=== PATIENT | male | born 1965 | race Two or more races ===

== ENCOUNTER 2020-03-17 01:24 | Inpatient (IN) | payer OTHER ==
[2020-03-17] VITALS (8 sets, daily range): BP systolic 96–128; BP diastolic 58–88
[~2020-03-17] VITALS: Ht 175.3 cm; Wt 82.6 kg
[2020-03-17] MEDS ORDERED: METFORMIN HCL500 M1 ORAL (01:37)
--- NOTE | 2020-03-17 01:46 | Emergency Room Report ---
History of Present Illness General Chief Complaint: Flu Like Symptoms Source: Patient Present Illness HPI This is a 55-year-old male with a history of diabetes high blood pressure. He presents with chief complaint of body pain and generalized weakness. Symptoms been ongoing for 7 days. He tested positive for Covid a week ago. He has a nonproductive cough. Has generalized body pain. Has subjective fever. Nothing made it better. Nothing made it worse. Symptoms appear to be worse in the last couple days. Been taking vitamin C without any relief. No sick contact. 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 COVID-19 Screening: Positive COVID-19 COVID-19 Testing Source: [facility] Patient History Past Medical History: see triage record, old chart reviewed, DM, HTN Past Surgical History: none Pertinent Family History: none Social History: Denies: smoking Immunizations: other Reviewed Nursing Documentation: PMH: Agreed; PSxH: Agreed Nursing Documentation-PMH Past Medical History: No History, Except For Hx Diabetes: Yes Review of Systems Constitutional: Reports: chills, fever, malaise, weakness Eye: Denies: eye pain, blurred vision ENT: Denies: ear pain, nose congestion, throat swelling Respiratory: Reports: cough, shortness of breath Cardiovascular: Reports: chest pain; Denies: palpitations Gastrointestinal: Denies: abdominal pain, diarrhea, nausea, vomiting Musculoskeletal: Denies: back pain, joint pain Skin: Denies: rash Neurological: Denies: headache, numbness Endocrine: Denies: increased thirst, increased urine Hematologic/Lymphatic: Denies: easy bruising All Other Systems: negative except mentioned in HPI Physical Exam Vital Signs Date Time Temp Pulse Resp B/P (MAP) Pulse Ox O2 Delivery O2 Flow Rate FiO2 03/17/20 01:34 100.6 107 18 128/82 (97) 95 Room Air Vitals with fever Sp02 EP Interpretation: reviewed, normal General Appearance: well appearing, alert, other - Ill-appearing Head: normocephalic, atraumatic Eyes: bilateral eye PERRL, bilateral eye EOMI ENT: hearing grossly normal, normal pharynx Neck: full range of motion, supple, no meningismus Respiratory: chest non-tender, lungs clear, normal breath sounds Cardiovascular #1: regular rate, rhythm, no murmur Gastrointestinal: normal bowel sounds, non tender, no mass, no organomegaly, no bruit, non-distended Musculoskeletal: back normal, normal range of motion, gait/station normal Psychiatric: mood/affect normal Medical Decision Making Diagnostic Impression: Primary Impression: Pneumonia due to COVID-19 virus Additional Impressions: Hyperglycemia due to type 2 diabetes mellitus Qualified Codes: E11.65 - Type 2 diabetes mellitus with hyperglycemia SIRS (systemic inflammatory response syndrome) ER Course This patient presents with generalized weakness and has Covid pneumonia. Is resting oxygenation is normal. Antibiotics given here. Insulin given here. He felt better after breathing treatment. He has higher risk for over deterioration because of his comorbidities. At this moment in time, he does not meet criteria for admission. Will discharge home. EKG Diagnostic Results Troponin ordered: Yes Rate: normal Rhythm: NSR ST Segments: other - RBBB Rhythm Strip Diag. Results EP Interpretation: yes Rate: 90 Rhythm: NSR, no PVC's, no ectopy Chest X-Ray Diagnostic Results Chest X-Ray Diagnostic Results : Chest X-Ray Ordered: Yes # of Views/Limited/Complete: 1 View Indication: Shortness of Breath EP Interpretation: Yes Interpretation: no effusion, no pneumothorax, other - Bilateral interstitial infiltrates Impression: Other - b/l infiltrates Electronically Signed by: Nate Begum MD Last Vital Signs Date Time Temp Pulse Resp B/P (MAP) Pulse Ox O2 Delivery O2 Flow Rate FiO2 03/17/20 01:34 100.6 107 18 128/82 (97) 95 Room Air Status: improved Disposition: HOME, SELF-CARE Condition: Stable Scripts Prednisone* (PREDNISONE*) 20 Mg Tablet 40 MG ORAL DAILY, #8 TAB Prov: Nate Begum MD 03/17/20 Zinc (ZINC) 50 Mg Tablet 100 MG ORAL DAILY, #100 TAB Prov: Nate Begum MD 03/17/20 Cholecalciferol (Vitamin D3) (Vitamin D3*) 25 Mcg Capsule 50 MCG PO DAILY for Supplement, #100 CAP Prov: Nate Begum MD 03/17/20 Azithromycin* (ZITHROMAX*) 250 Mg Tablet 250 MG ORAL DAILY, #4 TAB Prov: Nate Begum MD 03/17/20 Albuterol Sulfate* (Albuterol Sulfate Hfa*) 8.5 Gm Hfa.aer.ad 2 PUFF INH Q4H, #1 INH Prov: Nate Begum MD 03/17/20 Referrals: Brandon Smith MD (PCP) Additional Instructions: Check your sugar regularly. Increase fluid. Follow-up with your doctor in 2 to 3 days for recheck. Return for worsening symptoms especially breathing problems. Nate Begum MD Mar 17, 2020 01:46
[2020-03-17] MEDS ORDERED: Acetaminophen 500mg (ES) tab ORAL ONE (02:00)
[2020-03-17] MEDS ORDERED: Albuterol ud Inhalation HHN ONE (02:00)
[2020-03-17] MEDS ORDERED: dexAMETHasone 10mg/ml Inj IV ONE (02:00)
[2020-03-17 02:16] LABS: BASOPHILS % (AUTO) 0.7 % (0.0-2.0); EOSINOPHILS % (AUTO) 2.8 % (0.0-3.0); HEMATOCRIT 37.9 % (42.0-52.0); HEMOGLOBIN 13.7 G/DL (14.2-18.0); LYMPHOCYTES % (AUTO) 22.5 % (20.0-45.0); MEAN CORPUSCULAR VOLUME 89 FL (80-99); MONOCYTES % (AUTO) 8.1 % (1.0-10.0); NEUTROPHILS % (AUTO) 65.8 % (45.0-75.0); PLATELET COUNT 215 K/UL (150-450); RED BLOOD COUNT 4.25 M/UL (4.70-6.10); RED CELL DISTRIBUTION WIDTH 12.2 % (11.6-14.8); WHITE BLOOD COUNT 5.3 K/UL (4.8-10.8)
[2020-03-17 02:29] LABS: ANION GAP 6 mmol/L (5-15); BLOOD UREA NITROGEN 13 mg/dL (7-18); CALCIUM 8.3 MG/DL (8.5-10.1); CARBON DIOXIDE 26 MMOL/L (21-32); CHLORIDE 98 MMOL/L (98-107); CREATININE 0.9 MG/DL (0.55-1.30); POTASSIUM 3.8 MMOL/L (3.5-5.1); SODIUM 130 MMOL/L (136-145)
[2020-03-17] MEDS ORDERED: cefTRIAXone 1 GM in NS 55 ML IVPB ONE (02:45)
[2020-03-17] MEDS ORDERED: Azithromycin 500 MG in NS 275 ML IV ONE (02:45)
[2020-03-17 02:51] LABS: ALANINE AMINOTRANSFERASE 53 U/L (12-78); ALBUMIN 3.1 G/DL (3.4-5.0); ALBUMIN/GLOBULIN RATIO 0.8 (1.0-2.7); ALKALINE PHOSPHATASE 61 U/L (46-116); ASPARTATE AMINO TRANSFERASE 46 U/L (15-37); BILIRUBIN,TOTAL 0.6 MG/DL (0.2-1.0); CKMB 1.3 NG/ML (0.0-3.6); CREATINE KINASE 211 U/L (26-308); FERRITIN 729 NG/ML (8-388); LACTATE DEHYDROGENASE 258 U/L (81-234)
[2020-03-17] MEDS ORDERED: Insulin Human Regular 100units/ml 3ml IV ONE (03:00)
[2020-03-17] MEDS ORDERED: VITAMIN D325 MC1 PO (03:03)
[2020-03-17] MEDS ORDERED: ZINC50 M1 ORAL (03:03)
[2020-03-17] MEDS ORDERED: ZITHROMAX250 MG ORAL (03:03)
[2020-03-17] MEDS ORDERED: PREDNISONE20 MG ORAL (03:03)
[2020-03-17] MEDS ORDERED: ALBUTEROL SULF8.5 G1 INH (03:03)
[2020-03-17 06:08] LABS: APPEARANCE,URINE CLEAR; BILIRUBIN, URINE NEGATIVE (NEGATIVE); GLUCOSE, URINE (UA) 4+ (NEGATIVE); KETONES,URINE NEGATIVE (NEGATIVE); LEUKOCYTE ESTERASE ,URINE NEGATIVE (NEGATIVE); NITRITE,URINE NEGATIVE (NEGATIVE); PH,URINE 6 (4.5-8.0); PROTEIN,URINE 2+ (NEGATIVE); UROBILINOGEN,URINE NORMAL MG/DL (0.0-1.0)
[2020-03-17 06:11] LABS: COLOR,URINE YELLOW
[2020-03-17] MEDS ORDERED: EMERGEN-C 1,01000 MG PO (10:35)
--- NOTE | 2020-03-17 10:43 | Diagnostic Imaging Report ---
Procedure: XRAY Chest 1v Reason for study: Reason For Exam: SOB Comparison films: None. FINDINGS: A single one view chest is obtained. Vascularity is normal. Hazy peripheral infiltrates noted bilaterally. Consider viral pneumonitis. Cardiac and mediastinal silhouette are within normal limits. CP angles are sharp. The bony thorax appear unremarkable. IMPRESSION: Bilateral peripheral infiltrates. Consider viral pneumonitis.
[2020-03-17] MEDS ORDERED: GABAPENTIN600 MG ORAL (12:11)
[2020-03-17] MEDS ORDERED: LISINOPRIL5 MG ORAL (12:11)
[2020-03-17] MEDS ORDERED: CRESTOR20 MG ORAL (12:11)
[2020-03-17] MEDS ORDERED: GLIMEPIRIDE4 MG ORAL (12:11)
--- NOTE | 2020-03-17 15:45 | History and Physical Report ---
DATE OF ADMISSION: 03/17/2020 HISTORY OF PRESENT ILLNESS: This is a 55-year-old diabetic, hypertensive, who came to the hospital with generalized body aches and pains. He states he was tested positive for COVID about a week ago and gradually has been getting worse with increasing cough. He was also mildly dyspneic on arrival. He was also noted to be hypoxemic and currently he is saturating 96% on 4 L oxygen. He underwent imaging studies overnight, which have shown that he has bilateral peripheral infiltrates suspicious for bilateral pneumonia. PAST HISTORY: Hypertension and diabetes. REVIEW OF SYSTEMS: Denies any headaches, hematemesis, melena, hematochezia, night sweats, or weight loss. CURRENT MEDICATIONS: Metformin. ALLERGIES: None. SURGERIES: None. PHYSICAL EXAMINATION: GENERAL: A 55-year-old male. HEENT: Unremarkable. LUNGS: Clear breath sounds bilaterally. ABDOMEN: Soft. EXTREMITIES: There is no edema. NEUROLOGIC: Nonfocal. LABORATORY DATA: Lab testing shows normal CBC and BMP. Glucose is elevated to 333, ferritin 729, LDH 258. CRP 6.7. Coags, D-dimer of 0.5. Urinalysis negative. IMPRESSION: 1. COVID-19 pneumonia. 2. Hypertension. 3. Diabetes mellitus. DISCUSSION: Admit to the hospital. I will consult ID. Continue home medications. Provide oxygen. Start Decadron. I will follow. Casey Arias M.D. DR: NANCY JOB#: [id number] CC: TALIA
[2020-03-17] MEDS: metFORMIN 500mg tab ORAL SCH (17:56)
--- NOTE | 2020-03-17 22:27 | Infectious Diseases Prog Note ---
Assessment/Plan Assessment/Plan Full consult dictated: A) 1) covid-19 virus infection with pna and hypoxia 2) fevers 3) allergies - nkda P) 1) dexamethasone, ceftriaxone and azithromycin 2) consider remdesivir 3) monitor clinically 4) thank you Subjective Allergies: Coded Allergies: No Known Allergies (Unverified , 03/17/20) Objective Last 24 Hour Vital Signs Date Time Temp Pulse Resp B/P (MAP) Pulse Ox O2 Delivery O2 Flow Rate FiO2 03/17/20 20:00 98.9 83 19 109/64 (79) 95 03/17/20 16:00 98.1 73 18 121/83 (96) 98 03/17/20 12:00 99.9 83 18 123/88 (100) 96 03/17/20 11:01 Nasal Cannula 4.0 03/17/20 10:20 97.1 75 16 124/75 100 Nasal Cannula 4.0 03/17/20 07:34 97.0 75 16 111/82 99 Room Air 03/17/20 06:31 97.1 78 20 104/66 100 Nasal Cannula 4.0 03/17/20 05:45 98.9 109 18 100/67 100 Nasal Cannula 4.0 03/17/20 03:00 99.7 103 18 96/58 98 Room Air 03/17/20 02:30 99.7 03/17/20 02:04 96 18 98 Room Air 21 92 18 97 03/17/20 01:40 107 18 Room Air 03/17/20 01:40 100.6 105 18 128/82 95 Room Air 03/17/20 01:34 100.6 107 18 128/82 (97) 95 Room Air Height (Feet): 5 Height (Inches): 9.00 Weight (Pounds): 182 Microbiology Date/Time Source Procedure Growth Status 03/17/20 08:15 Nasopharynx SARS-CoV-2 RdRp Gene Assay - Final Complete Laboratory Tests Test 03/17/20 01:50 03/17/20 04:32 03/17/20 04:40 White Blood Count 5.3 K/UL (4.8-10.8) Red Blood Count 4.25 M/UL (4.70-6.10) L Hemoglobin 13.7 G/DL (14.2-18.0) L Hematocrit 37.9 % (42.0-52.0) L Mean Corpuscular Volume 89 FL (80-99) Mean Corpuscular Hemoglobin 32.1 PG (27.0-31.0) H Mean Corpuscular Hemoglobin Concent 36.0 G/DL (32.0-36.0) Red Cell Distribution Width 12.2 % (11.6-14.8) Platelet Count 215 K/UL (150-450) Mean Platelet Volume 7.3 FL (6.5-10.1) Neutrophils (%) (Auto) 65.8 % (45.0-75.0) Lymphocytes (%) (Auto) 22.5 % (20.0-45.0) Monocytes (%) (Auto) 8.1 % (1.0-10.0) Eosinophils (%) (Auto) 2.8 % (0.0-3.0) Basophils (%) (Auto) 0.7 % (0.0-2.0) Prothrombin Time 10.7 SEC (9.30-11.50) Prothromb Time International Ratio 1.0 (0.9-1.1) Activated Partial Thromboplast Time 29 SEC (23-33) D-Dimer 0.59 mg/L FEU (0.00-0.49) H Sodium Level 130 MMOL/L (136-145) L Potassium Level 3.8 MMOL/L (3.5-5.1) Chloride Level 98 MMOL/L (98-107) Carbon Dioxide Level 26 MMOL/L (21-32) Anion Gap 6 mmol/L (5-15) Blood Urea Nitrogen 13 mg/dL (7-18) Creatinine 0.9 MG/DL (0.55-1.30) Estimat Glomerular Filtration Rate > 60 mL/min (>60) Glucose Level 333 MG/DL (74-106) H Lactic Acid Level 2.00 mmol/L (0.4-2.0) Calcium Level 8.3 MG/DL (8.5-10.1) L Ferritin 729 NG/ML (8-388) H Total Bilirubin 0.6 MG/DL (0.2-1.0) Aspartate Amino Transf (AST/SGOT) 46 U/L (15-37) H Alanine Aminotransferase (ALT/SGPT) 53 U/L (12-78) Alkaline Phosphatase 61 U/L (46-116) Lactate Dehydrogenase 258 U/L (81-234) H Total Creatine Kinase 211 U/L (26-308) Creatine Kinase MB 1.3 NG/ML (0.0-3.6) Creatine Kinase MB Relative Index 0.6 Troponin I 0.003 ng/mL (0.000-0.056) C-Reactive Protein, Quantitative 6.7 mg/dL (0.00-0.90) H Total Protein 7.2 G/DL (6.4-8.2) Albumin 3.1 G/DL (3.4-5.0) L Globulin 4.1 g/dL Albumin/Globulin Ratio 0.8 (1.0-2.7) L Lipase 271 U/L (73-393) POC Whole Blood Glucose 241 MG/DL (74-106) H Urine Color Yellow Urine Appearance Clear Urine pH 6 (4.5-8.0) Urine Specific [place] 1.015 (1.005-1.035) Urine Protein 2+ (NEGATIVE) H Urine Glucose (UA) 4+ (NEGATIVE) H Urine Ketones Negative (NEGATIVE) Urine Blood Negative (NEGATIVE) Urine Nitrite Negative (NEGATIVE) Urine Bilirubin Negative (NEGATIVE) Urine Urobilinogen Normal MG/DL (0.0-1.0) Urine Leukocyte Esterase Negative (NEGATIVE) Urine RBC 0-2 /HPF (0 - 0) H Urine WBC 0 /HPF (0 - 0) Urine Squamous Epithelial Cells None /LPF (NONE/OCC) Urine Bacteria None /HPF (NONE) Current Medications Medications (Trade) Dose Ordered Sig/Tristin Route PRN Reason Start Time Stop Time Status Last Admin Dose Admin Acetaminophen (Tylenol) 650 mg Q4HR PRN ORAL TEMP>100.5 03/17/20 05:45 Dexamethasone Sodium Phosphate (Decadron 4mg/ml vial) 6 mg DAILY@2200 IVP 03/17/20 22:00 03/25/20 22:01 03/17/20 21:29 Gabapentin (Neurontin) 600 mg DAILY ORAL 03/18/20 09:00 04/17/20 08:59 Glimepiride (AmaryL) 4 mg DAILY ORAL 03/18/20 09:00 04/17/20 08:59 Lisinopril (ZestriL) 5 mg DAILY ORAL 03/18/20 09:00 04/17/20 08:59 Metformin HCl (Glucophage) 1,000 mg TWICE A DAY ORAL 03/17/20 18:00 04/16/20 17:59 03/17/20 17:56 Sodium Chloride 1,000 ml @ 50 mls/hr Q20H IV 03/17/20 14:00 04/16/20 13:59 03/17/20 14:29 Deepak Adrian MD Mar 17, 2020 22:27
[2020-03-17] MEDS: cefTRIAXone 1 GM in D5W 50 ML IVPB SCH (22:59)
[2020-03-18] VITALS: BP 113/64
[2020-03-18] MEDS ORDERED: Azithromycin 500mg Inj ONE (00:21)
[2020-03-18 04:00] VITALS: BP 114/77
[2020-03-18 06:51] LABS: HEMATOCRIT 37.4 % (42.0-52.0); MEAN CORPUSCULAR VOLUME 92 FL (80-99); PLATELET COUNT 244 K/UL (150-450); RED BLOOD COUNT 4.06 M/UL (4.70-6.10); RED CELL DISTRIBUTION WIDTH 11.7 % (11.6-14.8); WHITE BLOOD COUNT 8.8 K/UL (4.8-10.8)
[2020-03-18 07:07] LABS: BLOOD UREA NITROGEN 17 mg/dL (7-18); CALCIUM 8.1 MG/DL (8.5-10.1); CHLORIDE 101 MMOL/L (98-107); CREATININE 0.8 MG/DL (0.55-1.30); POTASSIUM 4.2 MMOL/L (3.5-5.1); SODIUM 135 MMOL/L (136-145)
[2020-03-18 07:13] LABS: CARBON DIOXIDE 23 MMOL/L (21-32)
[2020-03-18 08:00] VITALS: BP 104/68
[2020-03-18] MEDS ORDERED: Azithromycin 250 MG in D5W 275 ML IV SCH ×3 (08:00)
[2020-03-18] MEDS: Lisinopril 2.5mg tab ORAL SCH (09:00)
[2020-03-18] MEDS: Azithromycin 250 MG in D5W 275 ML IV SCH (09:02)
[2020-03-18] MEDS: Glimepiride 4mg tab ORAL SCH (09:03)
[2020-03-18] MEDS: metFORMIN 500mg tab ORAL SCH ×2 (09:03→17:18)
--- NOTE | 2020-03-18 09:07 | Pulmonology Progress Note ---
Subjective ROS Limited/Unobtainable: No Constitutional: Reports: other - weakness; Denies: fever, chills, drenching sweats HEENT: Repors: no symptoms Respiratory: Reports: dry cough; Denies: sputum, hemoptysis, wheezing Cardiovascular: Denies: chest pain, palpitations Gastrointestinal/Abdominal: Reports: no symptoms Genitourinary: Reports: no symptoms Allergies: Coded Allergies: No Known Allergies (Unverified , 03/17/20) Objective Last 24 Hour Vital Signs Date Time Temp Pulse Resp B/P (MAP) Pulse Ox O2 Delivery O2 Flow Rate FiO2 03/18/20 04:00 97.7 76 18 114/77 (89) 98 03/18/20 00:00 98.4 85 19 113/64 (80) 93 03/17/20 21:00 Nasal Cannula 4.0 03/17/20 20:00 98.9 83 19 109/64 (79) 95 03/17/20 16:00 98.1 73 18 121/83 (96) 98 03/17/20 12:00 99.9 83 18 123/88 (100) 96 03/17/20 11:01 Nasal Cannula 4.0 03/17/20 10:20 97.1 75 16 124/75 100 Nasal Cannula 4.0 Intake and Output 03/17/20 03/18/20 19:00 07:00 Intake Total 1500 ml 600 ml Output Total 750 ml Balance 1500 ml -150 ml Intake Oral 700 ml IV Total 200 ml 600 ml Other 600 ml Output Urine Total 750 ml # Voids 1 Objective 03/18/2020 pt laying in bed saturating 98% on 4 lpm NC; dry cough when talking General Appearance: WD/WN, no acute distress HEENT: normocephalic, atraumatic Respiratory: chest wall non-tender, lungs clear, no accessory muscle use Cardiovascular: normal peripheral pulses, normal rate, regular rhythm, no gallop/murmur Abdomen: normal bowel sounds, soft, non tender Extremities: no cyanosis, no clubbing, no edema Skin: no rash Neurologic: alert, oriented x 3 Microbiology Date/Time Source Procedure Growth Status 03/17/20 08:15 Nasopharynx SARS-CoV-2 RdRp Gene Assay - Final Complete 03/17/20 01:55 Blood Blood Culture - Preliminary NO GROWTH AFTER 24 HOURS Resulted 03/17/20 01:40 Blood Blood Culture - Preliminary NO GROWTH AFTER 24 HOURS Resulted Laboratory Tests 03/18/20 05:00: White Blood Count 8.8#, Red Blood Count 4.06L, Hemoglobin 13.0L, Hematocrit 37.4L, Mean Corpuscular Volume 92, Mean Corpuscular Hemoglobin 32.1H, Mean Corpuscular Hemoglobin Concent 34.8, Red Cell Distribution Width 11.7, Platelet Count 244, Mean Platelet Volume 6.3L, Neutrophils (%) (Auto) , Lymphocytes (%) (Auto) , Monocytes (%) (Auto) , Eosinophils (%) (Auto) , Basophils (%) (Auto) , Neutrophils % (Manual) [Pending], Lymphocytes % (Manual) [Pending], Platelet Estimate [Pending], Platelet Morphology [Pending], Sodium Level 135L, Potassium Level 4.2, Chloride Level 101, Carbon Dioxide Level 23, Blood Urea Nitrogen 17, Creatinine 0.8, Estimat Glomerular Filtration Rate > 60, Glucose Level 298H, Calcium Level 8.1L Current Medications Medications (Trade) Dose Ordered Sig/Tristin Route PRN Reason Start Time Stop Time Status Last Admin Dose Admin Azithromycin 250 mg/Dextrose 275 ml @ 275 mls/hr Q24HRS IV 03/18/20 09:00 03/23/20 08:59 Ceftriaxone Sodium 1 gm/ Dextrose 50 ml @ 100 mls/hr Q24H IVPB 03/17/20 22:30 03/24/20 22:29 03/17/20 22:59 Dexamethasone Sodium Phosphate (Decadron 4mg/ml vial) 6 mg DAILY@2200 IVP 03/17/20 22:00 03/25/20 22:01 03/17/20 21:29 Gabapentin (Neurontin) 600 mg DAILY ORAL 03/18/20 09:00 04/17/20 08:59 Glimepiride (AmaryL) 4 mg DAILY ORAL 03/18/20 09:00 04/17/20 08:59 Lisinopril (ZestriL) 5 mg DAILY ORAL 03/18/20 09:00 04/17/20 08:59 Metformin HCl (Glucophage) 1,000 mg TWICE A DAY ORAL 03/17/20 18:00 04/16/20 17:59 03/17/20 17:56 Sodium Chloride 1,000 ml @ 50 mls/hr Q20H IV 03/17/20 14:00 04/16/20 13:59 03/17/20 14:29 Assessment/Plan Assessment/Plan 1. COVID-19 pneumonia. - CXR 03/17/2020 Bilateral peripheral infiltrates. Consider viral pneumonitis - currently saturating 98% on 4 lpm NC - on Decadron - ceftriaxone, azithromycin added per ID 2. Hypertension. - on lisinopril 3. Diabetes mellitus. - on glimepiride, gabapentin, metformin Continue home medications. DVT ppx We will follow carefully The care of this patient was discussed with my supervising physician Time spent for this encounter was approximately 31 minutes The patient was seen and examined at bedside and all new and available data was reviewed in the patients chart. I agree with the above findings, impression, and plan. (Patient was seen earlier today. Signature timestamp does not reflect patient encounter time) Insurance requesting transfer to contracted hospital Patient stable for transfer Alfredito Smith MD Mar 18, 2020 09:07 Casey Arias MD Mar 18, 2020 17:31
[2020-03-18 12:00] VITALS: BP 108/63
--- NOTE | 2020-03-18 13:15 | Consultation ---
DATE OF CONSULTATION: 03/17/2020 INFECTIOUS DISEASES CONSULTATION CONSULTING PHYSICIAN: Deepak Adrian MD. ATTENDING PHYSICIAN: Casey Arias MD. REFERRING PHYSICIAN: Casey Arias MD. REASON FOR CONSULTATION: COVID-19 infection, pneumonia. CHIEF COMPLAINT: The patient's chief complaint into the hospital is hypoxia, COVID-19 infection, pneumonia. HISTORY OF PRESENT ILLNESS: This is a 55-year-old male who comes into [facility] with hypoxia. The patient had COVID testing that was positive. Infectious Disease consultation requested because of COVID infection, hypoxia, and pneumonia. The patient has been started on dexamethasone, ceftriaxone, azithromycin. Because of the hypoxia, I will plan on starting Remdesivir. We will discuss with pharmacy. The patient is on 4 liters O2 for the COVID-19 infection, pneumonia, and also treating possible community-acquired pneumonia with Rocephin and azithromycin. We will continue also dexamethasone, again consider starting on Remdesivir. REVIEW OF SYSTEMS: CONSTITUTIONAL: The patient has generalized fatigue. No focal weakness. He comes in with shortness of breath. He currently does not have fevers. He did have fevers when he came as high as 100.6. He has no chills, night sweats. CARDIAC: No chest pain. GASTROINTESTINAL: No nausea, vomiting, diarrhea. GENITOURINARY: No dysuria or frequency. PULMONARY: Mild shortness of breath. SKIN: No rash. PAST MEDICAL HISTORY: The patient has a past medical history of diabetes and hypertension. MEDICATIONS: Upon reviewing the MAR, he is on following medications: He is on Rocephin, azithromycin, lisinopril, Amaryl, Neurontin, dexamethasone 6 mg daily, ivf, abx, prn meds, metformin. Plan on possible Remdesivir. Outside medications noted and reconciliated. ALLERGIES: No known drug allergies. No antibiotic allergies. SOCIAL HISTORY: Negative for smoking, alcohol, drug abuse. FAMILY HISTORY: Noncontributory. PHYSICAL EXAMINATION: VITAL SIGNS: T-max 100.6. Current temperature when I saw him 98.1. Pulse rate 72, respiratory rate 18, blood pressure 121/83, saturation 98% on 4L. GENERAL: Alert and responsive. He is on 4 liters O2, mild shortness of breath. HEAD AND NECK: Oral exam, no thrush. Eye exam, no icterus. Normocephalic. Neck is supple. No JVD. HEART: Regular. No gallop or murmur. LUNGS: Few bilateral rhonchi and rales. ABDOMEN: Soft. Positive bowel sounds. Nontender. SKIN: No rash. MUSCULOSKELETAL: No effusions. Legs are without cellulitis. PERIPHERAL VASCULAR: No cyanosis. GENITOURINARY: No Hassan. LINE SITES: Without phlebitis. NEUROLOGIC: Intact and nonfocal. Alert and oriented x3. LABORATORY AND DIAGNOSTIC DATA: White count 5.3, hemoglobin 13.7. Creatinine 0.9. LFTs noted, LFTs were fairly unremarkable. AST slightly elevated at 46. C-reactive protein 6.7. UA, 0 white cells. Cultures, blood cultures negative to date. COVID testing was positive. Nasopharyngeal testing was positive. Imaging studies, chest x-ray showed bilateral peripheral infiltrates consistent with viral pneumonitis. ASSESSMENT AND PLAN: 1. The patient with COVID-19 infection with bilateral pneumonia, rule out community-acquired pneumonia. The patient was started on dexamethasone, Rocephin, and azithromycin to treat community-acquired pneumonia, also COVID-19 infection, pneumonia treatment with dexamethasone. Because of the elevated CRP and O2 also consider adding Remdesivir to the regiment for COVID-19 treatment. Continue Rocephin, azithromycin for community-acquired pneumonia and also dexamethasone and likely Remdesivir for COVID treatment. Monitor hypoxia. Check followup labs and chest x-ray. 2. Diabetes. 3. Hypertension. 4. Blood sugar and blood pressure treatment per primary care team. 5. No known drug allergies 6. Social history is negative. 7. Family history is noncontributory. 8. MAR was noted. 9. Case discussed with RN. 10. Continue treatment per primary care team and consultants. Deepak Adrian M.D. DR: Deepika JOB#: [id number] CC: TALIA
--- NOTE | 2020-03-18 14:20 | Infectious Diseases Prog Note ---
Assessment/Plan Assessment/Plan A) 1) covid-19 virus infection with pna and hypoxia 2) fevers 3) allergies - nkda P) 1) dexamethasone, ceftriaxone and azithromycin 2) remdesivir started - d/w with patient benefits and risks and patient agrees, d/w pharmacy 3) monitor clinically 4) thank you Subjective Constitutional: Reports: other - on 4 liters ; Denies: fever HEENT: Reports: congestion Respiratory: Reports: shortness of breath Cardiovascular: Reports: chest pain Gastrointestinal/Abdominal: Reports: nausea Allergies: Coded Allergies: No Known Allergies (Unverified , 03/17/20) Objective Last 24 Hour Vital Signs Date Time Temp Pulse Resp B/P (MAP) Pulse Ox O2 Delivery O2 Flow Rate FiO2 03/18/20 12:00 97.9 61 20 108/63 (78) 94 03/18/20 09:00 Nasal Cannula 4.0 03/18/20 08:00 98.1 77 20 104/68 (80) 95 03/18/20 04:00 97.7 76 18 114/77 (89) 98 03/18/20 00:00 98.4 85 19 113/64 (80) 93 03/17/20 21:00 Nasal Cannula 4.0 03/17/20 20:00 98.9 83 19 109/64 (79) 95 03/17/20 16:00 98.1 73 18 121/83 (96) 98 Height (Feet): 5 Height (Inches): 9.00 Weight (Pounds): 182 General Appearance: no acute distress HEENT: normocephalic, atraumatic, mucous membranes moist Respiratory/Chest: crackles/rales, rhonchi - bilaterally Cardiovascular: normal rate, regular rhythm Abdomen: normal bowel sounds, soft, non tender Microbiology Date/Time Source Procedure Growth Status 03/17/20 08:15 Nasopharynx SARS-CoV-2 RdRp Gene Assay - Final Complete 03/17/20 01:55 Blood Blood Culture - Preliminary NO GROWTH AFTER 24 HOURS Resulted 03/17/20 01:40 Blood Blood Culture - Preliminary NO GROWTH AFTER 24 HOURS Resulted Laboratory Tests Test 03/18/20 05:00 White Blood Count 8.8 K/UL (4.8-10.8) # Red Blood Count 4.06 M/UL (4.70-6.10) L Hemoglobin 13.0 G/DL (14.2-18.0) L Hematocrit 37.4 % (42.0-52.0) L Mean Corpuscular Volume 92 FL (80-99) Mean Corpuscular Hemoglobin 32.1 PG (27.0-31.0) H Mean Corpuscular Hemoglobin Concent 34.8 G/DL (32.0-36.0) Red Cell Distribution Width 11.7 % (11.6-14.8) Platelet Count 244 K/UL (150-450) Mean Platelet Volume 6.3 FL (6.5-10.1) L Neutrophils (%) (Auto) % (45.0-75.0) Lymphocytes (%) (Auto) % (20.0-45.0) Monocytes (%) (Auto) % (1.0-10.0) Eosinophils (%) (Auto) % (0.0-3.0) Basophils (%) (Auto) % (0.0-2.0) Differential Total Cells Counted 100 Neutrophils % (Manual) 85 % (45-75) H Lymphocytes % (Manual) 10 % (20-45) L Monocytes % (Manual) 5 % (1-10) Eosinophils % (Manual) 0 % (0-3) Basophils % (Manual) 0 % (0-2) Band Neutrophils 0 % (0-8) Platelet Estimate Adequate Platelet Morphology Normal Red Blood Cell Morphology Normal Sodium Level 135 MMOL/L (136-145) L Potassium Level 4.2 MMOL/L (3.5-5.1) Chloride Level 101 MMOL/L (98-107) Carbon Dioxide Level 23 MMOL/L (21-32) Blood Urea Nitrogen 17 mg/dL (7-18) Creatinine 0.8 MG/DL (0.55-1.30) Estimat Glomerular Filtration Rate > 60 mL/min (>60) Glucose Level 298 MG/DL (74-106) H Calcium Level 8.1 MG/DL (8.5-10.1) L Current Medications Medications (Trade) Dose Ordered Sig/Tristin Route PRN Reason Start Time Stop Time Status Last Admin Dose Admin Azithromycin 250 mg/Dextrose 275 ml @ 275 mls/hr Q24HRS IV 03/18/20 09:00 03/23/20 08:59 03/18/20 09:02 Ceftriaxone Sodium 1 gm/ Dextrose 50 ml @ 100 mls/hr Q24H IVPB 03/17/20 22:30 03/24/20 22:29 03/17/20 22:59 Dexamethasone Sodium Phosphate (Decadron 4mg/ml vial) 6 mg DAILY@2200 IVP 03/17/20 22:00 03/25/20 22:01 03/17/20 21:29 Gabapentin (Neurontin) 600 mg DAILY ORAL 03/18/20 09:00 04/17/20 08:59 03/18/20 09:03 Glimepiride (AmaryL) 4 mg DAILY ORAL 03/18/20 09:00 04/17/20 08:59 03/18/20 09:03 Lisinopril (ZestriL) 5 mg DAILY ORAL 03/18/20 09:00 04/17/20 08:59 Metformin HCl (Glucophage) 1,000 mg TWICE A DAY ORAL 03/17/20 18:00 04/16/20 17:59 03/18/20 09:03 Remdesivir 100 mg/ Sodium Chloride 250 ml @ 250 mls/hr Q24H IV 03/19/20 16:00 03/22/20 16:59 Remdesivir 200 mg/ Sodium Chloride 250 ml @ 125 mls/hr ONCE IV 03/18/20 16:00 03/18/20 17:59 Sodium Chloride 1,000 ml @ 50 mls/hr Q20H IV 03/17/20 14:00 04/16/20 13:59 03/18/20 09:03 Deepak Adrian MD Mar 18, 2020 14:20
[2020-03-18 16:00] VITALS: BP 119/61
[2020-03-18] MEDS ORDERED: Loading Dose:Remdesivir 200mg/NS 210ml IV SCH ×2 (16:00)
[2020-03-18 20:00] VITALS: BP 118/70
[2020-03-18] MEDS: cefTRIAXone 1 GM in D5W 50 ML IVPB SCH (21:52)
[2020-03-19] VITALS: BP 109/64
[2020-03-19 04:00] VITALS: BP 106/62
[2020-03-19 05:50] LABS: HEMATOCRIT 39.4 % (42.0-52.0); HEMOGLOBIN 13.6 G/DL (14.2-18.0); MEAN CORPUSCULAR VOLUME 93 FL (80-99); PLATELET COUNT 305 K/UL (150-450); RED BLOOD COUNT 4.22 M/UL (4.70-6.10); RED CELL DISTRIBUTION WIDTH 11.7 % (11.6-14.8); WHITE BLOOD COUNT 7.5 K/UL (4.8-10.8)
[2020-03-19 06:25] LABS: ALANINE AMINOTRANSFERASE 41 U/L (12-78); ALBUMIN/GLOBULIN RATIO 0.7 (1.0-2.7); ALKALINE PHOSPHATASE 48 U/L (46-116); ANION GAP 10 mmol/L (5-15); ASPARTATE AMINO TRANSFERASE 25 U/L (15-37); BILIRUBIN,DIRECT 0.1 MG/DL (0.0-0.3); BILIRUBIN,TOTAL 0.5 MG/DL (0.2-1.0); BLOOD UREA NITROGEN 16 mg/dL (7-18); CALCIUM 8.6 MG/DL (8.5-10.1); CARBON DIOXIDE 25 MMOL/L (21-32); CHLORIDE 101 MMOL/L (98-107); CREATININE 0.9 MG/DL (0.55-1.30); POTASSIUM 4.2 MMOL/L (3.5-5.1); SODIUM 136 MMOL/L (136-145)
[2020-03-19 08:00] VITALS: BP 112/81
[2020-03-19] MEDS: Glimepiride 4mg tab ORAL SCH (09:18)
[2020-03-19] MEDS: Azithromycin 250 MG in D5W 275 ML IV SCH (09:18)
[2020-03-19] MEDS: metFORMIN 500mg tab ORAL SCH ×2 (09:18→17:28)
[2020-03-19] MEDS: Lisinopril 2.5mg tab ORAL SCH (09:18)
[2020-03-19 12:00] VITALS: BP 119/83
--- NOTE | 2020-03-19 12:27 | Pulmonology Progress Note ---
Subjective ROS Limited/Unobtainable: No Interval Events: None new Constitutional: Reports: other - weakness; Denies: fever, chills, drenching sweats HEENT: Repors: no symptoms Respiratory: Reports: dry cough - Improving; Denies: sputum, hemoptysis, wheezing Cardiovascular: Denies: chest pain, palpitations Gastrointestinal/Abdominal: Reports: no symptoms Genitourinary: Reports: no symptoms Allergies: Coded Allergies: No Known Allergies (Unverified , 03/17/20) Objective Last 24 Hour Vital Signs Date Time Temp Pulse Resp B/P (MAP) Pulse Ox O2 Delivery O2 Flow Rate FiO2 03/19/20 09:18 112/81 03/19/20 09:00 Nasal Cannula 4.0 03/19/20 08:00 97.5 84 19 112/81 (91) 96 03/19/20 04:00 98.0 84 19 106/62 (77) 96 03/19/20 00:00 97.5 75 20 109/64 (79) 96 03/18/20 21:39 99.5 03/18/20 21:00 Nasal Cannula 4.0 03/18/20 20:00 100.9 59 20 118/70 (86) 96 03/18/20 16:00 97.7 68 20 119/61 (80) 94 Intake and Output 03/18/20 03/19/20 19:00 07:00 Intake Total 480 ml 350 ml Output Total 1300 ml 800 ml Balance -820 ml -450 ml Intake Oral 480 ml 350 ml Output Urine Total 1300 ml 800 ml Objective 03/19/2020 saturating well on 4 lpm NC; minimal cough 03/18/2020 pt laying in bed saturating 98% on 4 lpm NC; dry cough when talking General Appearance: WD/WN, no acute distress HEENT: normocephalic, atraumatic Respiratory: chest wall non-tender, lungs clear, no accessory muscle use Cardiovascular: normal peripheral pulses, normal rate, regular rhythm, no gallop/murmur Abdomen: normal bowel sounds, soft, non tender Extremities: no cyanosis, no clubbing, no edema Skin: no rash Neurologic: alert, oriented x 3 Microbiology Date/Time Source Procedure Growth Status 03/17/20 08:15 Nasopharynx SARS-CoV-2 RdRp Gene Assay - Final Complete 12/8/20 01:55 Blood Blood Culture - Preliminary NO GROWTH AFTER 24 HOURS Resulted 03/17/20 01:40 Blood Blood Culture - Preliminary NO GROWTH AFTER 24 HOURS Resulted Laboratory Tests 03/19/20 04:00: White Blood Count 7.5, Red Blood Count 4.22L, Hemoglobin 13.6L, Hematocrit 39.4L , Mean Corpuscular Volume 93, Mean Corpuscular Hemoglobin 32.2H, Mean Corpuscular Hemoglobin Concent 34.5, Red Cell Distribution Width 11.7, Platelet Count 305, Mean Platelet Volume 6.5, Neutrophils (%) (Auto) , Lymphocytes (%) (Auto) , Monocytes (%) (Auto) , Eosinophils (%) (Auto) , Basophils (%) (Auto) , Differential Total Cells Counted 100, Neutrophils % (Manual) 80H, Lymphocytes % (Manual) 16L, Monocytes % (Manual) 4, Eosinophils % (Manual) 0, Basophils % (Manual) 0, Band Neutrophils 0, Platelet Estimate Adequate, Platelet Morphology Normal, Red Blood Cell Morphology Normal, Sodium Level 136, Potassium Level 4.2, Chloride Level 101, Carbon Dioxide Level 25, Anion Gap 10, Blood Urea Nitrogen 16, Creatinine 0.9, Estimat Glomerular Filtration Rate > 60, Glucose Level 344H, Calcium Level 8.6, Total Bilirubin 0.5, Direct Bilirubin 0.1, Aspartate Amino Transf (AST/SGOT) 25, Alanine Aminotransferase (ALT/SGPT) 41, Alkaline Phosphatase 48, C-Reactive Protein, Quantitative 6.7H, Total Protein 7.4, Albumin 3.0L, Globulin 4.4, Albumin/Globulin Ratio 0.7L Current Medications Medications (Trade) Dose Ordered Sig/Tristin Route PRN Reason Start Time Stop Time Status Last Admin Dose Admin Acetaminophen (Tylenol) 650 mg Q4H PRN ORAL Temp >100.5 03/18/20 20:15 04/17/20 20:14 03/18/20 21:09 Acetaminophen (Tylenol) 650 mg Q4H PRN ORAL Mild Pain (Pain Scale 1-3) 03/18/20 20:15 04/17/20 20:14 Azithromycin 250 mg/Dextrose 275 ml @ 275 mls/hr Q24HRS IV 03/18/20 09:00 03/23/20 08:59 03/19/20 09:18 Ceftriaxone Sodium 1 gm/ Dextrose 50 ml @ 100 mls/hr Q24H IVPB 03/17/20 22:30 03/24/20 22:29 03/18/20 21:52 Dexamethasone Sodium Phosphate (Decadron 4mg/ml vial) 6 mg DAILY@2200 IVP 03/17/20 22:00 03/25/20 22:01 03/18/20 21:09 Gabapentin (Neurontin) 600 mg DAILY ORAL 03/18/20 09:00 04/17/20 08:59 03/19/20 09:18 Glimepiride (AmaryL) 4 mg DAILY ORAL 03/18/20 09:00 04/17/20 08:59 03/19/20 09:18 Lisinopril (ZestriL) 5 mg DAILY ORAL 03/18/20 09:00 04/17/20 08:59 03/19/20 09:18 Metformin HCl (Glucophage) 1,000 mg TWICE A DAY ORAL 03/17/20 18:00 04/16/20 17:59 03/19/20 09:18 Remdesivir 100 mg/ Sodium Chloride 250 ml @ 250 mls/hr Q24H IV 03/19/20 16:00 03/22/20 16:59 Sodium Chloride 1,000 ml @ 50 mls/hr Q20H IV 03/17/20 14:00 04/16/20 13:59 03/19/20 05:21 Assessment/Plan Assessment/Plan 1. COVID-19 pneumonia. - CXR 03/17/2020 Bilateral peripheral infiltrates. Consider viral pneumonitis - currently saturating 98% on 4 lpm NC - on Decadron per ID - on ceftriaxone, azithromycin per ID 2. Hypertension. - on lisinopril 3. Diabetes mellitus. - on glimepiride, gabapentin, metformin Continue home medications. DVT ppx 03/18/2020 patient denied transfer to another hospital in [facility] in [facility], which is under his insurance network, but declined saying, "it is too far and I will stay here". We will follow carefully The care of this patient was discussed with my supervising physician Time spent for this encounter was approximately 31 minutes The patient was seen and examined at bedside and all new and available data was reviewed in the patients chart. I agree with the above findings, impression, and plan. F/U with ~~ Recommendation (Patient was seen earlier today. Signature timestamp does not reflect patient encounter time) Alfredito Smith MD Mar 19, 2020 12:27 Casey Arias MD Mar 19, 2020 18:02
[2020-03-19] MEDS: Maintenance Dose:Remdesivir 100mg/NS 230ml x 4 Doses IV SCH ×2 (15:26)
[2020-03-19 16:00] VITALS: BP 118/70
--- NOTE | 2020-03-19 16:26 | Diagnostic Imaging Report ---
Indication: Reason For Exam: Shortness of breath Technique: Single AP view of the chest. Comparison: Chest radiograph dated 03/17/2020 Findings: The cardiomediastinal silhouette is unchanged in appearance. Redemonstration of diffuse interstitial opacities and bilateral foraminal peripheral patchy airspace opacities. No pneumothorax. No increasing pleural effusion. IMPRESSION: No significant change when compared to most recent examination.
[2020-03-19] MEDS ORDERED: VITAMIN C1000 M2 PO (18:32)
[2020-03-19] MEDS ORDERED: CRESTOR10 M2 ORAL (18:32)
[2020-03-19] MEDS ORDERED: AUGMENTIN 500-1 EACH ORAL (18:32)
[2020-03-19] MEDS ORDERED: OMEPRAZOLE20 M2 ORAL (18:32)
[2020-03-19] MEDS ORDERED: METFORMIN HCL1000 M1 ORAL (18:32)
[2020-03-19 20:00] VITALS: BP 122/77
[2020-03-19] MEDS: cefTRIAXone 1 GM in D5W 50 ML IVPB SCH (21:30)
--- NOTE | 2020-03-19 22:41 | Infectious Diseases Prog Note ---
Assessment/Plan Assessment/Plan ASSESSMENT AND PLAN: 1. covid-19, pna, ? cap, hypoxia, fevers - dexamethasone - day # 3 - remdesivir - day # 2 - ceftriaxone/azithromycin - day # 3 - monitor labs, chest x-ray and hypoxia 2. Diabetes. 3. Hypertension. 4. Blood sugar and blood pressure treatment per primary care team. 5. No known drug allergies 6. Social history is negative. 7. Family history is noncontributory. 8. MAR was noted. 9. Case discussed with RN. 10. Continue treatment per primary care team and consultants. Subjective Constitutional: Reports: fatigue; Denies: fever HEENT: Reports: congestion - less Respiratory: Reports: shortness of breath - less Cardiovascular: Denies: chest pain Gastrointestinal/Abdominal: Denies: nausea, vomiting, diarrhea Genitourinary: Denies: dysuria, hematuria Neurologic: Denies: headache, numbness Psychiatric: Denies: depression Skin: Denies: rash Hematologic: Denies: bleeding Musculoskeletal: Denies: pain Allergies: Coded Allergies: No Known Allergies (Unverified , 03/17/20) Objective Last 24 Hour Vital Signs Date Time Temp Pulse Resp B/P (MAP) Pulse Ox O2 Delivery O2 Flow Rate FiO2 03/19/20 20:00 98.4 53 20 122/77 (92) 94 03/19/20 16:00 98.3 58 19 118/70 (86) 96 03/19/20 12:00 98.0 84 19 119/83 (95) 96 03/19/20 09:18 112/81 03/19/20 09:00 Nasal Cannula 4.0 03/19/20 08:00 97.5 84 19 112/81 (91) 96 03/19/20 04:00 98.0 84 19 106/62 (77) 96 03/19/20 00:00 97.5 75 20 109/64 (79) 96 Height (Feet): 5 Height (Inches): 9.00 Weight (Pounds): 182 General Appearance: no acute distress HEENT: normocephalic, atraumatic, anicteric, mucous membranes moist Respiratory/Chest: no accessory muscle use, crackles/rales, rhonchi - bilaterally Cardiovascular: normal rate, regular rhythm, no gallop/murmur Abdomen: normal bowel sounds, soft, non tender, no organomegaly, non distended Genitourinary: other - no vera Extremities: no cyanosis Skin: no rash 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 Comparison: Chest radiograph dated 03/17/2020 Findings: The cardiomediastinal silhouette is unchanged in appearance. Redemonstration of diffuse interstitial opacities and bilateral foraminal peripheral patchy airspace opacities. No pneumothorax. No increasing pleural effusion. IMPRESSION: No significant change when compared to most recent examination. Microbiology Date/Time Source Procedure Growth Status 03/17/20 08:15 Nasopharynx SARS-CoV-2 RdRp Gene Assay - Final Complete 03/17/20 01:55 Blood Blood Culture - Preliminary NO GROWTH AFTER 24 HOURS Resulted 03/17/20 01:40 Blood Blood Culture - Preliminary NO GROWTH AFTER 24 HOURS Resulted Laboratory Tests Test 03/19/20 04:00 White Blood Count 7.5 K/UL (4.8-10.8) Red Blood Count 4.22 M/UL (4.70-6.10) L Hemoglobin 13.6 G/DL (14.2-18.0) L Hematocrit 39.4 % (42.0-52.0) L Mean Corpuscular Volume 93 FL (80-99) Mean Corpuscular Hemoglobin 32.2 PG (27.0-31.0) H Mean Corpuscular Hemoglobin Concent 34.5 G/DL (32.0-36.0) Red Cell Distribution Width 11.7 % (11.6-14.8) Platelet Count 305 K/UL (150-450) Mean Platelet Volume 6.5 FL (6.5-10.1) Neutrophils (%) (Auto) % (45.0-75.0) Lymphocytes (%) (Auto) % (20.0-45.0) Monocytes (%) (Auto) % (1.0-10.0) Eosinophils (%) (Auto) % (0.0-3.0) Basophils (%) (Auto) % (0.0-2.0) Differential Total Cells Counted 100 Neutrophils % (Manual) 80 % (45-75) H Lymphocytes % (Manual) 16 % (20-45) L Monocytes % (Manual) 4 % (1-10) Eosinophils % (Manual) 0 % (0-3) Basophils % (Manual) 0 % (0-2) Band Neutrophils 0 % (0-8) Platelet Estimate Adequate Platelet Morphology Normal Red Blood Cell Morphology Normal Sodium Level 136 MMOL/L (136-145) Potassium Level 4.2 MMOL/L (3.5-5.1) Chloride Level 101 MMOL/L (98-107) Carbon Dioxide Level 25 MMOL/L (21-32) Anion Gap 10 mmol/L (5-15) Blood Urea Nitrogen 16 mg/dL (7-18) Creatinine 0.9 MG/DL (0.55-1.30) Estimat Glomerular Filtration Rate > 60 mL/min (>60) Glucose Level 344 MG/DL (74-106) H Calcium Level 8.6 MG/DL (8.5-10.1) Total Bilirubin 0.5 MG/DL (0.2-1.0) Direct Bilirubin 0.1 MG/DL (0.0-0.3) Aspartate Amino Transf (AST/SGOT) 25 U/L (15-37) Alanine Aminotransferase (ALT/SGPT) 41 U/L (12-78) Alkaline Phosphatase 48 U/L (46-116) C-Reactive Protein, Quantitative 6.7 mg/dL (0.00-0.90) H Total Protein 7.4 G/DL (6.4-8.2) Albumin 3.0 G/DL (3.4-5.0) L Globulin 4.4 g/dL Albumin/Globulin Ratio 0.7 (1.0-2.7) L Current Medications Medications (Trade) Dose Ordered Sig/Tristin Route PRN Reason Start Time Stop Time Status Last Admin Dose Admin Acetaminophen (Tylenol) 650 mg Q4H PRN ORAL Temp >100.5 03/18/20 20:15 04/17/20 20:14 03/18/20 21:09 Acetaminophen (Tylenol) 650 mg Q4H PRN ORAL Mild Pain (Pain Scale 1-3) 03/18/20 20:15 04/17/20 20:14 Azithromycin 250 mg/Dextrose 275 ml @ 275 mls/hr Q24HRS IV 12/9/20 09:00 03/23/20 08:59 03/19/20 09:18 Ceftriaxone Sodium 1 gm/ Dextrose 50 ml @ 100 mls/hr Q24H IVPB 03/17/20 22:30 03/24/20 22:29 03/19/20 21:30 Dexamethasone Sodium Phosphate (Decadron 4mg/ml vial) 6 mg DAILY@2200 IVP 03/17/20 22:00 03/25/20 22:01 03/19/20 21:30 Gabapentin (Neurontin) 600 mg DAILY ORAL 03/20/20 09:00 04/17/20 08:59 Glimepiride (AmaryL) 4 mg DAILY ORAL 03/18/20 09:00 04/17/20 08:59 03/19/20 09:18 Lisinopril (ZestriL) 5 mg DAILY ORAL 03/18/20 09:00 04/17/20 08:59 03/19/20 09:18 Metformin HCl (Glucophage) 1,000 mg TWICE A DAY ORAL 03/17/20 18:00 04/16/20 17:59 03/19/20 17:28 Remdesivir 100 mg/ Sodium Chloride 250 ml @ 250 mls/hr Q24H IV 03/19/20 16:00 03/22/20 16:59 03/19/20 15:26 Sodium Chloride 1,000 ml @ 50 mls/hr Q20H IV 03/17/20 14:00 04/16/20 13:59 03/19/20 05:21 Deepak Adrian MD Mar 19, 2020 22:41
[2020-03-20] VITALS: BP 126/69
[2020-03-20 04:00] VITALS: BP 117/79
[2020-03-20 06:19] LABS: HEMATOCRIT 36.8 % (42.0-52.0); MEAN CORPUSCULAR VOLUME 94 FL (80-99); PLATELET COUNT 322 K/UL (150-450); RED BLOOD COUNT 3.91 M/UL (4.70-6.10); WHITE BLOOD COUNT 6.7 K/UL (4.8-10.8)
[2020-03-20 06:53] LABS: ALANINE AMINOTRANSFERASE 30 U/L (12-78); ALBUMIN 2.9 G/DL (3.4-5.0); ALBUMIN/GLOBULIN RATIO 0.7 (1.0-2.7); ALKALINE PHOSPHATASE 52 U/L (46-116); ANION GAP 9 mmol/L (5-15); ASPARTATE AMINO TRANSFERASE 30 U/L (15-37); BILIRUBIN,DIRECT 0.2 MG/DL (0.0-0.3); BILIRUBIN,TOTAL 0.5 MG/DL (0.2-1.0); BLOOD UREA NITROGEN 19 mg/dL (7-18); CALCIUM 8.6 MG/DL (8.5-10.1); CARBON DIOXIDE 24 MMOL/L (21-32); CHLORIDE 99 MMOL/L (98-107); CREATININE 0.9 MG/DL (0.55-1.30); POTASSIUM 4.5 MMOL/L (3.5-5.1); SODIUM 132 MMOL/L (136-145)
[2020-03-20 08:00] VITALS: BP 123/93
[2020-03-20] MEDS: Glimepiride 4mg tab ORAL SCH (09:00)
[2020-03-20] MEDS: metFORMIN 500mg tab ORAL SCH ×2 (09:31→18:00)
[2020-03-20] MEDS: Azithromycin 250 MG in D5W 275 ML IV SCH (09:31)
[2020-03-20] MEDS: Lisinopril 2.5mg tab ORAL SCH (09:32)
--- NOTE | 2020-03-20 09:47 | Pulmonology Progress Note ---
Subjective ROS Limited/Unobtainable: No Interval Events: None new Constitutional: Reports: fatigue; Denies: fever HEENT: Repors: no symptoms Respiratory: Reports: dry cough - Improving; Denies: sputum, hemoptysis, wheezi ng Cardiovascular: Denies: chest pain, palpitations Gastrointestinal/Abdominal: Denies: nausea, vomiting, diarrhea Genitourinary: Reports: no symptoms Psychiatric: Denies: depression Skin: Denies: rash Musculoskeletal: Denies: pain Allergies: Coded Allergies: No Known Allergies (Unverified , 03/17/20) Objective Last 24 Hour Vital Signs Date Time Temp Pulse Resp B/P (MAP) Pulse Ox O2 Delivery O2 Flow Rate FiO2 03/20/20 09:32 121/93 03/20/20 04:00 96.8 73 19 117/79 (92) 95 03/20/20 00:00 98.4 56 20 126/69 (88) 94 03/19/20 21:00 Nasal Cannula 4.0 03/19/20 20:00 98.4 53 20 122/77 (92) 94 03/19/20 16:00 98.3 58 19 118/70 (86) 96 03/19/20 12:00 98.0 84 19 119/83 (95) 96 Intake and Output 03/19/20 03/20/20 19:00 07:00 Intake Total 1430 ml 350 ml Output Total 800 ml 760 ml Balance 630 ml -410 ml Intake Oral 480 ml 350 ml Other 950 ml Output Urine Total 800 ml 760 ml Objective 03/20/2020 saturating well on 4 lpm NC; pt subjectively feels better 03/19/2020 saturating well on 4 lpm NC; minimal cough 03/18/2020 pt laying in bed saturating 98% on 4 lpm NC; dry cough when talking General Appearance: WD/WN, no acute distress HEENT: normocephalic, atraumatic Respiratory: chest wall non-tender, lungs clear, no accessory muscle use Cardiovascular: normal peripheral pulses, normal rate, regular rhythm, no gallop/murmur Abdomen: normal bowel sounds, soft, non tender Extremities: no cyanosis, no clubbing, no edema Skin: no rash Neurologic: alert, oriented x 3 Laboratory Tests 03/20/20 04:00: White Blood Count 6.7, Red Blood Count 3.91L, Hemoglobin 13.0L, Hematocrit 36.8L , Mean Corpuscular Volume 94, Mean Corpuscular Hemoglobin 33.4H, Mean Corpuscular Hemoglobin Concent 35.4, Red Cell Distribution Width 12.0, Platelet Count 322, Mean Platelet Volume 5.9L, Neutrophils (%) (Auto) , Lymphocytes (%) (Auto) , Monocytes (%) (Auto) , Eosinophils (%) (Auto) , Basophils (%) (Auto) 03/20/20 04:15: Sodium Level 132L, Potassium Level 4.5, Chloride Level 99, Carbon Dioxide Level 24, Anion Gap 9, Blood Urea Nitrogen 19H, Creatinine 0.9, Estimat Glomerular Filtration Rate > 60, Glucose Level 352H, Calcium Level 8.6, Total Bilirubin 0.5, Direct Bilirubin 0.2, Aspartate Amino Transf (AST/SGOT) 30, Alanine Aminotransferase (ALT/SGPT) 30, Alkaline Phosphatase 52, Total Protein 7.3, Albumin 2.9L, Globulin 4.4, Albumin/Globulin Ratio 0.7L Current Medications Medications (Trade) Dose Ordered Sig/Tristin Route PRN Reason Start Time Stop Time Status Last Admin Dose Admin Acetaminophen (Tylenol) 650 mg Q4H PRN ORAL Temp >100.5 03/18/20 20:15 04/17/20 20:14 03/18/20 21:09 Acetaminophen (Tylenol) 650 mg Q4H PRN ORAL Mild Pain (Pain Scale 1-3) 03/18/20 20:15 04/17/20 20:14 Azithromycin 250 mg/Dextrose 275 ml @ 275 mls/hr Q24HRS IV 03/18/20 09:00 03/23/20 08:59 03/20/20 09:31 Ceftriaxone Sodium 1 gm/ Dextrose 50 ml @ 100 mls/hr Q24H IVPB 03/17/20 22:30 03/24/20 22:29 03/19/20 21:30 Dexamethasone Sodium Phosphate (Decadron 4mg/ml vial) 6 mg DAILY@2200 IVP 03/17/20 22:00 03/25/20 22:01 03/19/20 21:30 Gabapentin (Neurontin) 600 mg DAILY ORAL 03/20/20 09:00 04/17/20 08:59 03/20/20 09:31 Glimepiride (AmaryL) 4 mg DAILY ORAL 03/18/20 09:00 04/17/20 08:59 03/20/20 09:00 Lisinopril (ZestriL) 5 mg DAILY ORAL 03/18/20 09:00 04/17/20 08:59 03/20/20 09:32 Metformin HCl (Glucophage) 1,000 mg TWICE A DAY ORAL 03/17/20 18:00 04/16/20 17:59 03/20/20 09:31 Remdesivir 100 mg/ Sodium Chloride 250 ml @ 250 mls/hr Q24H IV 03/19/20 16:00 03/22/20 16:59 03/19/20 15:26 Sodium Chloride 1,000 ml @ 50 mls/hr Q20H IV 03/17/20 14:00 04/16/20 13:59 03/20/20 02:00 Assessment/Plan Assessment/Plan 1. COVID-19 pneumonia. - CXR 03/17/2020 Bilateral peripheral infiltrates. Consider viral pneumonitis - currently saturating 98% on 4 lpm NC - on Decadron per ID - on ceftriaxone, azithromycin per ID 2. Hypertension. - on lisinopril 3. Diabetes mellitus. - on glimepiride, gabapentin, metformin 4. Hyponatremia - Na 135 -> 132 5. Elevated BUN - 15 -> 19 Monitor chemistries Continue home medications. DVT ppx 03/18/2020 patient declined transfer to another hospital in [facility] in [facility], which is under his insurance network, but declined saying, "it is too far and I will stay here". We will follow carefully The care of this patient was discussed with my supervising physician Time spent for this encounter was approximately 31 minutes Alfredito Bennett Mar 20, 2020 09:47
[2020-03-20 12:00] VITALS: BP 114/76
[2020-03-20 16:00] VITALS: BP 108/65
[2020-03-20] MEDS: Maintenance Dose:Remdesivir 100mg/NS 230ml x 4 Doses IV SCH ×2 (16:17)
[2020-03-20 20:00] VITALS: BP 140/70
[2020-03-20] MEDS: cefTRIAXone 1 GM in D5W 50 ML IVPB SCH (22:23)
[2020-03-21] VITALS: BP 139/87
[2020-03-21 04:00] VITALS: BP 125/79
[2020-03-21 05:39] LABS: BASOPHILS % (AUTO) 0.5 % (0.0-2.0); EOSINOPHILS % (AUTO) 0.1 % (0.0-3.0); HEMATOCRIT 38.7 % (42.0-52.0); HEMOGLOBIN 13.6 G/DL (14.2-18.0); LYMPHOCYTES % (AUTO) 9.9 % (20.0-45.0); MEAN CORPUSCULAR VOLUME 91 FL (80-99); MONOCYTES % (AUTO) 5.7 % (1.0-10.0); NEUTROPHILS % (AUTO) 83.8 % (45.0-75.0); PLATELET COUNT 403 K/UL (150-450); RED BLOOD COUNT 4.23 M/UL (4.70-6.10); RED CELL DISTRIBUTION WIDTH 12.6 % (11.6-14.8); WHITE BLOOD COUNT 6.1 K/UL (4.8-10.8)
[2020-03-21 06:09] LABS: ALANINE AMINOTRANSFERASE 29 U/L (12-78); ALBUMIN 2.7 G/DL (3.4-5.0); ALBUMIN/GLOBULIN RATIO 0.6 (1.0-2.7); ALKALINE PHOSPHATASE 53 U/L (46-116); ANION GAP 10 mmol/L (5-15); ASPARTATE AMINO TRANSFERASE 20 U/L (15-37); BILIRUBIN,DIRECT 0.2 MG/DL (0.0-0.3); BILIRUBIN,TOTAL 0.5 MG/DL (0.2-1.0); BLOOD UREA NITROGEN 18 mg/dL (7-18); CALCIUM 8.3 MG/DL (8.5-10.1); CARBON DIOXIDE 23 MMOL/L (21-32); CHLORIDE 102 MMOL/L (98-107); CREATININE 0.9 MG/DL (0.55-1.30); POTASSIUM 4.3 MMOL/L (3.5-5.1); SODIUM 135 MMOL/L (136-145)
[2020-03-21 08:00] VITALS: BP 125/72
[2020-03-21] MEDS: Azithromycin 250 MG in D5W 275 ML IV SCH (09:02)
[2020-03-21] MEDS: Glimepiride 4mg tab ORAL SCH (09:02)
[2020-03-21] MEDS: Lisinopril 2.5mg tab ORAL SCH (09:03)
[2020-03-21] MEDS: metFORMIN 500mg tab ORAL SCH ×2 (09:03→17:27)
[2020-03-21 12:00] VITALS: BP 115/75
--- NOTE | 2020-03-21 12:23 | Pulmonology Progress Note ---
Subjective ROS Limited/Unobtainable: No Interval Events: pt reports feeling much better Constitutional: Denies: fever HEENT: Repors: no symptoms Respiratory: Reports: dry cough - Improving; Denies: sputum, hemoptysis, wheezing Cardiovascular: Denies: chest pain, palpitations Gastrointestinal/Abdominal: Denies: nausea, vomiting, diarrhea Genitourinary: Reports: no symptoms Psychiatric: Denies: depression Skin: Denies: rash Musculoskeletal: Denies: pain Allergies: Coded Allergies: No Known Allergies (Unverified , 03/17/20) Objective Last 24 Hour Vital Signs Date Time Temp Pulse Resp B/P (MAP) Pulse Ox O2 Delivery O2 Flow Rate FiO2 03/21/20 09:03 125/77 03/21/20 09:00 Nasal Cannula 4.0 03/21/20 08:00 97.0 77 19 125/72 (89) 94 03/21/20 04:00 96.4 73 16 125/79 (94) 03/21/20 00:00 97.3 66 18 139/87 (104) 94 03/20/20 21:00 Nasal Cannula 4.0 03/20/20 20:00 98.1 67 18 140/70 (93) 94 03/20/20 16:00 97.6 58 20 108/65 (79) 95 Intake and Output 03/20/20 03/21/20 19:00 07:00 Intake Total 1000 ml 1019 ml Output Total 600 ml Balance 400 ml 1019 ml IV Total 50 ml 619 ml Other 950 ml 400 ml Output Urine Total 600 ml # Voids 3 Objective 03/21/2020 saturating well on 4 lpm NC; minimal cough 03/20/2020 saturating well on 4 lpm NC; pt subjectively feels better 03/19/2020 saturating well on 4 lpm NC; minimal cough 03/18/2020 pt laying in bed saturating 98% on 4 lpm NC; dry cough when talking General Appearance: WD/WN, no acute distress HEENT: normocephalic, atraumatic Respiratory: chest wall non-tender, lungs clear, no accessory muscle use Cardiovascular: normal peripheral pulses, normal rate, regular rhythm, no gallop/murmur Abdomen: normal bowel sounds, soft, non tender Extremities: no cyanosis, no clubbing, no edema Skin: no rash Neurologic: alert, oriented x 3 Laboratory Tests 03/21/20 04:30: White Blood Count 6.1, Red Blood Count 4.23L, Hemoglobin 13.6L, Hematocrit 38.7L , Mean Corpuscular Volume 91, Mean Corpuscular Hemoglobin 32.2H, Mean Corpuscular Hemoglobin Concent 35.3, Red Cell Distribution Width 12.6, Platelet Count 403, Mean Platelet Volume 6.5, Neutrophils (%) (Auto) 83.8H, Lymphocytes (%) (Auto) 9.9L, Monocytes (%) (Auto) 5.7, Eosinophils (%) (Auto) 0.1, Basophils (%) (Auto) 0.5, Sodium Level 135L, Potassium Level 4.3, Chloride Level 102, Carbon Dioxide Level 23, Anion Gap 10, Blood Urea Nitrogen 18, Creatinine 0.9, Estimat Glomerular Filtration Rate > 60, Glucose Level 379H, Calcium Level 8.3L, Total Bilirubin 0.5, Direct Bilirubin 0.2, Aspartate Amino Transf (AST/SGOT) 20, Alanine Aminotransferase (ALT/SGPT) 29, Alkaline Phosphatase 53, Total Protein 7.1, Albumin 2.7L, Globulin 4.4, Albumin/Globulin Ratio 0.6L Current Medications Medications (Trade) Dose Ordered Sig/Tristin Route PRN Reason Start Time Stop Time Status Last Admin Dose Admin Acetaminophen (Tylenol) 650 mg Q4H PRN ORAL Temp >100.5 03/18/20 20:15 04/17/20 20:14 03/18/20 21:09 Acetaminophen (Tylenol) 650 mg Q4H PRN ORAL Mild Pain (Pain Scale 1-3) 03/18/20 20:15 04/17/20 20:14 Azithromycin 250 mg/Dextrose 275 ml @ 275 mls/hr Q24HRS IV 03/18/20 09:00 03/23/20 08:59 03/21/20 09:02 Ceftriaxone Sodium 1 gm/ Dextrose 50 ml @ 100 mls/hr Q24H IVPB 03/17/20 22:30 03/24/20 22:29 03/20/20 22:23 Dexamethasone Sodium Phosphate (Decadron 4mg/ml vial) 6 mg DAILY@2200 IVP 03/17/20 22:00 03/25/20 22:01 03/20/20 22:23 Gabapentin (Neurontin) 600 mg DAILY ORAL 03/20/20 09:00 04/17/20 08:59 03/21/20 09:03 Glimepiride (AmaryL) 4 mg DAILY ORAL 03/18/20 09:00 04/17/20 08:59 03/21/20 09:02 Lisinopril (ZestriL) 5 mg DAILY ORAL 03/18/20 09:00 04/17/20 08:59 03/21/20 09:03 Metformin HCl (Glucophage) 1,000 mg TWICE A DAY ORAL 03/17/20 18:00 04/16/20 17:59 03/21/20 09:03 Remdesivir 100 mg/ Sodium Chloride 250 ml @ 250 mls/hr Q24H IV 03/19/20 16:00 03/22/20 16:59 03/20/20 16:17 Sodium Chloride 1,000 ml @ 50 mls/hr Q20H IV 03/17/20 14:00 04/16/20 13:59 03/20/20 22:23 Assessment/Plan Assessment/Plan 1. COVID-19 pneumonia. - CXR 03/17/2020 Bilateral peripheral infiltrates. Consider viral pneumonitis - currently saturating 98% on 4 lpm NC - on Decadron per ID - on ceftriaxone, azithromycin per ID 2. Hypertension. - on lisinopril 3. Diabetes mellitus. - on glimepiride, gabapentin, metformin 4. Hyponatremia - Na 135 -> 132 -> 135 5. Elevated BUN - 15 -> 19 -> 18 Monitor chemistries Continue home medications. DVT ppx 03/18/2020 patient declined transfer to another hospital in [facility] in [facility], which is under his insurance network, but declined saying, "it is too far and I will stay here". We will follow carefully The care of this patient was discussed with my supervising physician Time spent for this encounter was approximately 31 minutes Will attempt to wean down O2 DC home after completion of Remdesivir Switch to PO Decadron on discharge DC likely 03/22/20 The patient was seen and examined at bedside and all new and available data was reviewed in the patients chart. I agree with the above findings, impression, and plan. (Patient was seen earlier today. Signature timestamp does not reflect patient encounter time) Alfredito Smith MD Mar 21, 2020 12:23 Casey Arias MD Mar 21, 2020 18:18
[2020-03-21 16:00] VITALS: BP 125/71
[2020-03-21] MEDS: Maintenance Dose:Remdesivir 100mg/NS 230ml x 4 Doses IV SCH ×2 (16:21)
--- NOTE | 2020-03-21 19:56 | Infectious Diseases Prog Note ---
Assessment/Plan Assessment/Plan ASSESSMENT AND PLAN: 1. covid-19, pna, ? cap, hypoxia, fevers - dexamethasone - day # 5 - remdesivir - day # 4 - ceftriaxone/azithromycin - day # 5 - monitor labs, chest x-ray and hypoxia 2. Diabetes. 3. Hypertension. 4. Blood sugar and blood pressure treatment per primary care team. 5. No known drug allergies 6. Social history is negative. 7. Family history is noncontributory. 8. MAR was noted. 9. Case discussed with RN. 10. Continue treatment per primary care team and consultants. Subjective Constitutional: Reports: fatigue; Denies: fever, chills HEENT: Reports: congestion - less Respiratory: Reports: shortness of breath - less Cardiovascular: Denies: chest pain Gastrointestinal/Abdominal: Denies: nausea, vomiting, diarrhea Genitourinary: Reports: other - no vera Neurologic: Denies: headache Psychiatric: Denies: depression Skin: Denies: rash Hematologic: Denies: bleeding Musculoskeletal: Denies: pain Allergies: Coded Allergies: No Known Allergies (Unverified , 03/17/20) Objective Last 24 Hour Vital Signs Date Time Temp Pulse Resp B/P (MAP) Pulse Ox O2 Delivery O2 Flow Rate FiO2 03/21/20 16:00 98.1 90 20 125/71 (89) 96 03/21/20 12:00 97.9 79 20 115/75 (88) 96 03/21/20 09:03 125/77 03/21/20 09:00 Nasal Cannula 4.0 03/21/20 08:00 97.0 77 19 125/72 (89) 94 03/21/20 04:00 96.4 73 16 125/79 (94) 03/21/20 00:00 97.3 66 18 139/87 (104) 94 03/20/20 21:00 Nasal Cannula 4.0 03/20/20 20:00 98.1 67 18 140/70 (93) 94 Height (Feet): 5 Height (Inches): 9.00 Weight (Pounds): 182 General Appearance: no acute distress HEENT: normocephalic, atraumatic, anicteric, mucous membranes moist Respiratory/Chest: no accessory muscle use, crackles/rales, rhonchi - bilaterally Cardiovascular: normal rate, regular rhythm, no gallop/murmur Abdomen: normal bowel sounds, soft, non tender, no organomegaly, non distended Genitourinary: other - no vera Extremities: no cyanosis Skin: no rash 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 Comparison: Chest radiograph dated 03/17/2020 Findings: The cardiomediastinal silhouette is unchanged in appearance. Redemonstration of diffuse interstitial opacities and bilateral foraminal peripheral patchy airspace opacities. No pneumothorax. No increasing pleural effusion. IMPRESSION: No significant change when compared to most recent examination. Microbiology Date/Time Source Procedure Growth Status 03/17/20 08:15 Nasopharynx SARS-CoV-2 RdRp Gene Assay - Final Complete 03/17/20 01:55 Blood Blood Culture - Preliminary NO GROWTH AFTER 4 DAYS Resulted Laboratory Tests Test 03/21/20 04:30 White Blood Count 6.1 K/UL (4.8-10.8) Red Blood Count 4.23 M/UL (4.70-6.10) L Hemoglobin 13.6 G/DL (14.2-18.0) L Hematocrit 38.7 % (42.0-52.0) L Mean Corpuscular Volume 91 FL (80-99) Mean Corpuscular Hemoglobin 32.2 PG (27.0-31.0) H Mean Corpuscular Hemoglobin Concent 35.3 G/DL (32.0-36.0) Red Cell Distribution Width 12.6 % (11.6-14.8) Platelet Count 403 K/UL (150-450) Mean Platelet Volume 6.5 FL (6.5-10.1) Neutrophils (%) (Auto) 83.8 % (45.0-75.0) H Lymphocytes (%) (Auto) 9.9 % (20.0-45.0) L Monocytes (%) (Auto) 5.7 % (1.0-10.0) Eosinophils (%) (Auto) 0.1 % (0.0-3.0) Basophils (%) (Auto) 0.5 % (0.0-2.0) Sodium Level 135 MMOL/L (136-145) L Potassium Level 4.3 MMOL/L (3.5-5.1) Chloride Level 102 MMOL/L (98-107) Carbon Dioxide Level 23 MMOL/L (21-32) Anion Gap 10 mmol/L (5-15) Blood Urea Nitrogen 18 mg/dL (7-18) Creatinine 0.9 MG/DL (0.55-1.30) Estimat Glomerular Filtration Rate > 60 mL/min (>60) Glucose Level 379 MG/DL (74-106) H Calcium Level 8.3 MG/DL (8.5-10.1) L Total Bilirubin 0.5 MG/DL (0.2-1.0) Direct Bilirubin 0.2 MG/DL (0.0-0.3) Aspartate Amino Transf (AST/SGOT) 20 U/L (15-37) Alanine Aminotransferase (ALT/SGPT) 29 U/L (12-78) Alkaline Phosphatase 53 U/L (46-116) Total Protein 7.1 G/DL (6.4-8.2) Albumin 2.7 G/DL (3.4-5.0) L Globulin 4.4 g/dL Albumin/Globulin Ratio 0.6 (1.0-2.7) L Current Medications Medications (Trade) Dose Ordered Sig/Tristin Route PRN Reason Start Time Stop Time Status Last Admin Dose Admin Acetaminophen (Tylenol) 650 mg Q4H PRN ORAL Temp >100.5 03/18/20 20:15 04/17/20 20:14 03/18/20 21:09 Acetaminophen (Tylenol) 650 mg Q4H PRN ORAL Mild Pain (Pain Scale 1-3) 03/18/20 20:15 04/17/20 20:14 Azithromycin 250 mg/Dextrose 275 ml @ 275 mls/hr Q24HRS IV 03/18/20 09:00 03/23/20 08:59 03/21/20 09:02 Ceftriaxone Sodium 1 gm/ Dextrose 50 ml @ 100 mls/hr Q24H IVPB 03/17/20 22:30 03/24/20 22:29 03/20/20 22:23 Dexamethasone Sodium Phosphate (Decadron 4mg/ml vial) 6 mg DAILY@2200 IVP 03/17/20 22:00 03/25/20 22:01 03/20/20 22:23 Gabapentin (Neurontin) 600 mg DAILY ORAL 03/20/20 09:00 04/17/20 08:59 03/21/20 09:03 Glimepiride (AmaryL) 4 mg DAILY ORAL 03/18/20 09:00 04/17/20 08:59 03/21/20 09:02 Lisinopril (ZestriL) 5 mg DAILY ORAL 03/18/20 09:00 04/17/20 08:59 03/21/20 09:03 Metformin HCl (Glucophage) 1,000 mg TWICE A DAY ORAL 03/17/20 18:00 04/16/20 17:59 03/21/20 17:27 Remdesivir 100 mg/ Sodium Chloride 250 ml @ 250 mls/hr Q24H IV 03/19/20 16:00 03/22/20 16:59 03/21/20 16:21 Sodium Chloride 1,000 ml @ 50 mls/hr Q20H IV 03/17/20 14:00 04/16/20 13:59 03/21/20 17:27 Deepak Adrian MD Mar 21, 2020 19:56
[2020-03-21 20:00] VITALS: BP 124/72
[2020-03-21] MEDS: cefTRIAXone 1 GM in D5W 50 ML IVPB SCH (21:36)
[2020-03-22] VITALS: BP 114/71
[2020-03-22 04:00] VITALS: BP 118/74
[2020-03-22 06:18] LABS: ALANINE AMINOTRANSFERASE < 6 U/L (12-78); ALBUMIN 2.7 G/DL (3.4-5.0); ALBUMIN/GLOBULIN RATIO 0.6 (1.0-2.7); ALKALINE PHOSPHATASE 52 U/L (46-116); ANION GAP 9 mmol/L (5-15); ASPARTATE AMINO TRANSFERASE 47 U/L (15-37); BILIRUBIN,DIRECT < 0.1 MG/DL (0.0-0.3); BILIRUBIN,TOTAL 0.6 MG/DL (0.2-1.0); BLOOD UREA NITROGEN 20 mg/dL (7-18); CALCIUM 8.3 MG/DL (8.5-10.1); CARBON DIOXIDE 20 MMOL/L (21-32); CHLORIDE 100 MMOL/L (98-107); CREATININE 0.7 MG/DL (0.55-1.30); POTASSIUM 5.4 MMOL/L (3.5-5.1); SODIUM 129 MMOL/L (136-145)
[2020-03-22 06:41] LABS: BASOPHILS % (AUTO) 1.2 % (0.0-2.0); HEMATOCRIT 36.8 % (42.0-52.0); HEMOGLOBIN 13.6 G/DL (14.2-18.0); MEAN CORPUSCULAR VOLUME 92 FL (80-99); MONOCYTES % (AUTO) 5.2 % (1.0-10.0); NEUTROPHILS % (AUTO) 82.6 % (45.0-75.0); PLATELET COUNT 407 K/UL (150-450); RED BLOOD COUNT 3.98 M/UL (4.70-6.10); RED CELL DISTRIBUTION WIDTH 12.4 % (11.6-14.8)
[2020-03-22 08:00] VITALS: BP 118/71
[2020-03-22] MEDS: Glimepiride 4mg tab ORAL SCH (08:18)
[2020-03-22] MEDS: metFORMIN 500mg tab ORAL SCH ×3 (08:19→17:30)
[2020-03-22] MEDS: Lisinopril 2.5mg tab ORAL SCH (08:19)
[2020-03-22] MEDS: Azithromycin 250 MG in D5W 275 ML IV SCH (08:43)
[2020-03-22 12:00] VITALS: BP 103/68
--- NOTE | 2020-03-22 12:03 | Pulmonology Progress Note ---
Subjective ROS Limited/Unobtainable: No Interval Events: pt reports feeling much better Constitutional: Reports: fatigue; Denies: fever, chills HEENT: Repors: no symptoms Respiratory: Reports: dry cough - Improving; Denies: sputum, hemoptysis, wheezing Cardiovascular: Denies: chest pain, palpitations Gastrointestinal/Abdominal: Denies: nausea, vomiting, diarrhea Genitourinary: Reports: no symptoms Psychiatric: Denies: depression Skin: Denies: rash Musculoskeletal: Denies: pain Allergies: Coded Allergies: No Known Allergies (Unverified , 03/17/20) Objective Last 24 Hour Vital Signs Date Time Temp Pulse Resp B/P (MAP) Pulse Ox O2 Delivery O2 Flow Rate FiO2 03/22/20 09:00 Nasal Cannula 4.0 03/22/20 08:19 124/79 03/22/20 08:00 98.1 88 20 118/71 (87) 94 03/22/20 04:00 97.6 79 19 118/74 (89) 94 03/22/20 00:00 97.1 74 18 114/71 (85) 95 03/21/20 21:00 Nasal Cannula 4.0 03/21/20 20:00 97.6 92 17 124/72 (89) 95 03/21/20 16:00 98.1 90 20 125/71 (89) 96 Intake and Output 03/21/20 03/22/20 19:00 07:00 Intake Total 2000 ml 880 ml Output Total 600 ml 980 ml Balance 1400 ml -100 ml Intake Oral 1000 ml 280 ml IV Total 50 ml 600 ml Other 950 ml Output Urine Total 600 ml 980 ml # Voids 4 3 Objective 03/22/2020 saturating well on 4 lpm NC; titrate down oxygen while keeping SaO2 >92% 03/21/2020 saturating well on 4 lpm NC; minimal cough 03/20/2020 saturating well on 4 lpm NC; pt subjectively feels better 03/19/2020 saturating well on 4 lpm NC; minimal cough 03/18/2020 pt laying in bed saturating 98% on 4 lpm NC; dry cough when talking General Appearance: WD/WN, no acute distress HEENT: normocephalic, atraumatic Respiratory: chest wall non-tender, lungs clear, no accessory muscle use Cardiovascular: normal peripheral pulses, normal rate, regular rhythm, no gallop/murmur Abdomen: normal bowel sounds, soft, non tender Extremities: no cyanosis, no clubbing, no edema Skin: no rash Neurologic: alert, oriented x 3 Laboratory Tests 03/22/20 04:00: White Blood Count 6.0, Red Blood Count 3.98L, Hemoglobin 13.6L, Hematocrit 36.8L , Mean Corpuscular Volume 92, Mean Corpuscular Hemoglobin 34.1H, Mean Corpuscular Hemoglobin Concent 36.9H, Red Cell Distribution Width 12.4, Platelet Count 407, Mean Platelet Volume 5.7L, Neutrophils (%) (Auto) 82.6H, Lymphocytes (%) (Auto) 11.0L, Monocytes (%) (Auto) 5.2, Eosinophils (%) (Auto) 0.0, Basophils (%) (Auto) 1.2, Sodium Level 129L, Potassium Level 5.4H, Chloride Level 100, Carbon Dioxide Level 20L, Anion Gap 9, Blood Urea Nitrogen 20H, Creatinine 0.7, Estimat Glomerular Filtration Rate > 60, Glucose Level 386H, Calcium Level 8.3L, Total Bilirubin 0.6, Direct Bilirubin < 0.1, Aspartate Amino Transf (AST/SGOT) 47H, Alanine Aminotransferase (ALT/SGPT) < 6L, Alkaline Phosphatase 52, Total Protein 7.0, Albumin 2.7L, Globulin 4.3, Albumin/Globulin Ratio 0.6L Current Medications Medications (Trade) Dose Ordered Sig/Tristin Route PRN Reason Start Time Stop Time Status Last Admin Dose Admin Acetaminophen (Tylenol) 650 mg Q4H PRN ORAL Temp >100.5 03/18/20 20:15 04/17/20 20:14 03/18/20 21:09 Acetaminophen (Tylenol) 650 mg Q4H PRN ORAL Mild Pain (Pain Scale 1-3) 03/18/20 20:15 04/17/20 20:14 Azithromycin 250 mg/Dextrose 275 ml @ 275 mls/hr Q24HRS IV 03/18/20 09:00 03/23/20 08:59 03/22/20 08:43 Ceftriaxone Sodium 1 gm/ Dextrose 50 ml @ 100 mls/hr Q24H IVPB 03/17/20 22:30 03/24/20 22:29 03/21/20 21:36 Dexamethasone Sodium Phosphate (Decadron 4mg/ml vial) 6 mg DAILY@2200 IVP 03/17/20 22:00 03/25/20 22:01 03/21/20 21:35 Gabapentin (Neurontin) 600 mg DAILY ORAL 03/20/20 09:00 04/17/20 08:59 03/22/20 08:19 Glimepiride (AmaryL) 4 mg DAILY ORAL 03/18/20 09:00 04/17/20 08:59 03/22/20 08:18 Lisinopril (ZestriL) 5 mg DAILY ORAL 03/18/20 09:00 04/17/20 08:59 03/22/20 08:19 Metformin HCl (Glucophage) 1,000 mg TWICE A DAY ORAL 03/17/20 18:00 04/16/20 17:59 03/22/20 08:19 Remdesivir 100 mg/ Sodium Chloride 250 ml @ 250 mls/hr Q24H IV 03/19/20 16:00 03/22/20 16:59 03/21/20 16:21 Assessment/Plan Assessment/Plan 1. COVID-19 pneumonia. - CXR 03/17/2020 Bilateral peripheral infiltrates. Consider viral pneumonitis - currently saturating 98% on 4 lpm NC - Wean down oxygen while keeping SaO2 >92% - on Decadron per ID - on ceftriaxone, azithromycin per ID 2. Hypertension. - on lisinopril 3. Diabetes mellitus. - on glimepiride, gabapentin, metformin - Persistently elevated BGs - A1c ordered; pending 4. Hyponatremia - Na 135 -> 132 -> 135 -> 129 5. Elevated BUN - 15 -> 19 -> 18 -> 20 Monitor chemistries Continue home medications. DVT ppx 03/18/2020 patient declined transfer to another hospital in [facility] in [facility], which is under his insurance network, but declined saying, "it is too far and I will stay here". We will follow carefully The care of this patient was discussed with my supervising physician Time spent for this encounter was approximately 31 minutes The patient was seen and examined at bedside and all new and available data was reviewed in the patients chart. I agree with the above findings, impression, and plan. (Patient was seen earlier today. Signature timestamp does not reflect patient encounter time) Alfredito Smith MD 13, 2020 12:03 Casey Arias MD Mar 22, 2020 16:56
[2020-03-22 16:00] VITALS: BP 133/67
[2020-03-22] MEDS: Maintenance Dose:Remdesivir 100mg/NS 230ml x 4 Doses IV SCH ×2 (16:17)
[2020-03-22 20:00] VITALS: BP 124/69
[2020-03-22] MEDS: cefTRIAXone 1 GM in D5W 50 ML IVPB SCH (22:30)
[2020-03-23] VITALS: BP 135/72
[2020-03-23 04:00] VITALS: BP 129/68
[2020-03-23 08:00] VITALS: BP 110/78
[2020-03-23 08:23] LABS: ANION GAP 11 mmol/L (5-15); BLOOD UREA NITROGEN 19 mg/dL (7-18); CALCIUM 8.9 MG/DL (8.5-10.1); CARBON DIOXIDE 23 MMOL/L (21-32); CHLORIDE 99 MMOL/L (98-107); CREATININE 0.7 MG/DL (0.55-1.30); POTASSIUM 4.4 MMOL/L (3.5-5.1); SODIUM 133 MMOL/L (136-145)
[2020-03-23] MEDS: Lisinopril 2.5mg tab ORAL SCH ×2 (08:55→09:00)
[2020-03-23] MEDS: metFORMIN 500mg tab ORAL SCH (08:55)
[2020-03-23] MEDS: Glimepiride 4mg tab ORAL SCH (08:55)
[2020-03-23 12:00] VITALS: BP 133/87
--- NOTE | 2020-03-23 13:05 | Discharge Instructions ---
Discharge Instructions Discharge Instructions Follow up with: PCP within 1 week Services at Discharge: oxygen therapy Diet: diabetic calorie control Resume Normal Activity?: No Activity: as tolerated Special Instructions Resume 4 L per minute oxygen at home; wean down oxygen as tolerated Take oral Decadron for four days starting today For Congestive Heart Failure Reminder Report to your physician any weight gain of 5 pounds or more in one week. Alfredito Bennett Mar 23, 2020 13:04
--- NOTE | 2020-03-23 13:51 | Pulmonology Progress Note ---
Subjective ROS Limited/Unobtainable: No Interval Events: pt reports feeling much better Constitutional: Denies: fever, chills HEENT: Repors: no symptoms Respiratory: Reports: dry cough - Improving; Denies: sputum, hemoptysis, wheezing Cardiovascular: Denies: chest pain, palpitations Gastrointestinal/Abdominal: Denies: nausea, vomiting, diarrhea Genitourinary: Reports: no symptoms Psychiatric: Denies: depression Skin: Denies: rash Musculoskeletal: Denies: pain Allergies: Coded Allergies: No Known Allergies (Unverified , 03/17/20) Objective Last 24 Hour Vital Signs Date Time Temp Pulse Resp B/P (MAP) Pulse Ox O2 Delivery O2 Flow Rate FiO2 03/23/20 09:00 110/78 03/23/20 09:00 Nasal Cannula 4.0 03/23/20 08:00 97.7 92 18 110/78 (89) 94 03/23/20 04:00 98.7 89 18 129/68 (88) 97 03/23/20 00:00 98.3 85 18 135/72 (93) 97 03/22/20 21:00 Nasal Cannula 4.0 03/22/20 20:00 99.3 87 18 124/69 (87) 99 03/22/20 16:00 99.0 85 18 133/67 (89) 97 Intake and Output 03/22/20 03/23/20 19:00 07:00 Intake Total 1380 ml Output Total 1000 ml Balance 380 ml Intake Oral 480 ml Other 900 ml Output Urine Total 1000 ml Objective 03/23/2020 saturating well on 4 lpm NC; dc home with oxygen and oral Decadron 03/22/2020 saturating well on 4 lpm NC; titrate down oxygen while keeping SaO2 >92% 03/21/2020 saturating well on 4 lpm NC; minimal cough 03/20/2020 saturating well on 4 lpm NC; pt subjectively feels better 03/19/2020 saturating well on 4 lpm NC; minimal cough 03/18/2020 pt laying in bed saturating 98% on 4 lpm NC; dry cough when talking General Appearance: WD/WN, no acute distress HEENT: normocephalic, atraumatic Respiratory: chest wall non-tender, lungs clear, no accessory muscle use Cardiovascular: normal peripheral pulses, normal rate, regular rhythm, no gallop/murmur Abdomen: normal bowel sounds, soft, non tender Extremities: no cyanosis, no clubbing, no edema Skin: no rash Neurologic: alert, oriented x 3 Laboratory Tests 03/23/20 05:15: Sodium Level 133L, Potassium Level 4.4, Chloride Level 99, Carbon Dioxide Level 23, Anion Gap 11, Blood Urea Nitrogen 19H, Creatinine 0.7, Estimat Glomerular Filtration Rate > 60, Glucose Level 372H, Hemoglobin A1c 7.7H, Calcium Level 8.9 Current Medications Medications (Trade) Dose Ordered Sig/Tristin Route PRN Reason Start Time Stop Time Status Last Admin Dose Admin Acetaminophen (Tylenol) 650 mg Q4H PRN ORAL Temp >100.5 03/18/20 20:15 04/17/20 20:14 03/18/20 21:09 Acetaminophen (Tylenol) 650 mg Q4H PRN ORAL Mild Pain (Pain Scale 1-3) 03/18/20 20:15 04/17/20 20:14 Dexamethasone (Decadron) 6 mg DAILY ORAL 03/23/20 14:00 03/26/20 09:01 03/23/20 13:37 Gabapentin (Neurontin) 600 mg DAILY ORAL 03/20/20 09:00 04/17/20 08:59 03/23/20 08:55 Glimepiride (AmaryL) 4 mg DAILY ORAL 03/18/20 09:00 04/17/20 08:59 03/23/20 08:55 Lisinopril (ZestriL) 5 mg DAILY ORAL 03/18/20 09:00 04/17/20 08:59 03/22/20 08:19 Metformin HCl (Glucophage) 1,000 mg TWICE A DAY ORAL 03/17/20 18:00 04/16/20 17:59 03/23/20 08:55 Assessment/Plan Assessment/Plan 1. COVID-19 pneumonia. - CXR 03/17/2020 Bilateral peripheral infiltrates. Consider viral pneumonitis - currently saturating 98% on 4 lpm NC - Wean down oxygen while keeping SaO2 >92% - on Decadron per ID; switched to oral Decadron - s/p ceftriaxone, azithromycin per ID 2. Hypertension. - on lisinopril 3. Diabetes mellitus. - on glimepiride, gabapentin, metformin - A1c 7.7 4. Hyponatremia - Na 135 -> 132 -> 135 -> 129 5. Elevated BUN - 15 -> 19 -> 18 -> 20 Continue home medications. DC home with oxygen 4 lpm NC; wean down as tolerated Continue oral Decadron 6 mg 1 tab PO QD for 4 days 03/18/2020 patient declined transfer to another hospital in [facility] in [facility], which is under his insurance network, but declined saying, "it is too far and I will stay here". We will follow carefully The care of this patient was discussed with my supervising physician Time spent for this encounter was approximately 31 minutes Alfredito Bennett Mar 23, 2020 13:51
[2020-03-23] MEDS ORDERED: DECADRON6 MG PO (13:54)
--- NOTE | 2020-03-24 13:44 | Discharge Summary ---
Discharge Summary Discharge Summary _ DATE OF ADMISSION: 03/17/2020 DATE OF DISCHARGE: 03/23/2020 DISCHARGED BY: Dr. Arias REASON FOR ADMISSION: 55 years old male with past medical history of hypertension, diabetes mellitus, presented with chief complaint of generalized weakness and body pains. Symptoms were ongoing for 7 days. Patient was tested positive for Covid a week ago. He reported productive cough. He subsequently presented to emergency department for evaluation Vital signs revealed fever, tachycardia ; pulse oximetry was stable on room a ir. Laboratory work-up revealed no leukocytosis , stable hemoglobin, hematocrit and platelet count. Stable electrolytes and renal parameters. Glucose 333. Rapid COVID-19 was positive. Ferritin 729, LDH 258, CRP 6.7 . D-dimer 0.59. Chest x-ray revealed bilateral peripheral infiltrates. Troponin negative. EKG showed sinus rhythm no acute ischemic changes ; right bundle branch block . Patient received empiric antibiotic , steroids , liter of fluid , 10 units of insulin . Plan was to discharge home, however he desaturated in emergency department and became tachycardic. Patient subsequently admitted for further management. CONSULTANTS: ID specialist Dr. Adrian [facility] COURSE: Patient admitted to isolation room. Supplemental oxygen provided and titrated to keep pulse oximetry above 92%. Patient started on steroids and remdesivir. Empiric antibiotic provided . Home medication resumed . Albuterol inhaler provided as needed . Follow-up chest x-ray revealed no significant changes. Fevers resolved , no leukocytosis .; Patient was able to be weaned to room air prior to discharge pulse oximetry 93 -94% on room air. Patient clinically stabilized and was ready for discharge. FINAL DIAGNOSES: COVID-19 pneumonia Hypertension Diabetes mellitus DISCHARGE MEDICATIONS: See Medication Reconciliation list. DISCHARGE INSTRUCTIONS: Patient was discharged home. Patient was educated on self isolation. I have been assigned to dictate discharge summary for this account. I was not involved in the patient's management. Maira Walker NP Mar 24, 2020 13:44
== END 2020-03-23 15:25 | disposition home or self-care (01) | DRG 177 ==
LOC: EMR 01:44 → 4E 05:40 → EDBEDREQ 10:05
DX: U07.1 COVID-19 (principal); J12.89 Other viral pneumonia; E87.1 Hypo-osmolality and hyponatremia; I10 Essential (primary) hypertension; Z79.84 Long term (current) use of oral hypoglycemic drugs; R09.02 Hypoxemia
CPT/HCPCS: 36415; 71045; 80048; 80053; 81003; 82248; 82550; 82553; 82728; 82962; 83036; 83605; 83615; 83690; 84484; 85007; 85025; 85379; 85610; 85730; 86140; 87040; 93005; 94640; 96361; 96365; 96367; 96375; 99285; J3490; J7030; U0002